=== PATIENT | female | born 1955 | race Caucasian/White ===

== ENCOUNTER → 2016-05-14 | Day surgery (SDC) | payer BC ==
[~2016-05-14] VITALS: Ht 154.9 cm; Wt 51.7 kg
[2016-05-14] VITALS (8 sets, daily range): BP systolic 116–125; BP diastolic 60–78
[~2016-05-14] MED LIST: FISH OIL300 M1 PO; LR 1000ml ONE; Lidocaine 1% MPF 10mg/ml 5ml ONE; MULTI VITAMIN1 EACH ORAL; Propofol 10mg/ml 20ml IV ONE; RED YEAST RICE600 MG PO
--- NOTE | 2016-05-14 10:01 | Pre-Procedure Note/Attestation ---
Pre-Procedure Note/Attestation Complete Prior to Procedure Planned Procedure: not applicable Procedure Narrative: colon Indications for Procedure Pre-Operative Diagnosis: screen Attestation I attest that I discussed the nature of the procedure; its benefits; risks and complications; and alternatives (and the risks and benefits of such alternatives ), prior to the procedure, with the patient (or the patient's legal factory representative). I attest that, if there was a reasonable possibility of needing a blood transfusion, the patient (or the patient's legal factory representative) was given the [facility] standardized written summary, pursuant to the Mehul Jaya Blood Safety Act ([place] Health and Safety Code # 1645, as amended). I attest that I re-evaluated the patient just prior to the surgery and that there has been no change in the patient's H&P, except as documented below: ERICA SIMENTAL May 14, 2016 10:01
--- NOTE | 2016-05-14 10:02 | Short Stay Surgery H&P ---
History of Present Illness History of Present Illness Chief Complaint see H&P attached HPI Holly Arellano is a 60 year old female who was admitted on for Colon Screening Patient History Allergies: Coded Allergies: No Known Allergies (Unverified , 05/14/16) PAST MEDICAL HISTORY: Past Surgeries: Social History: Medication History Scheduled Multivitamin (Multi Vitamin Daily), 1 TAB ORAL DAILY, (Reported) [place]-3 Fatty Acids (Fish Oil), 500 MG PO DA, (Reported) Red Yeast Rice (Red Yeast Rice), 600 MG PO DA, (Reported) Physical Exam Vital Signs Last Vital Signs Date Time Temp Pulse Resp B/P Pulse Ox O2 Delivery O2 Flow Rate FiO2 05/14/16 09:32 97.3 77 20 116/76 100 Room Air Plan Attestation Are the patient's medical conditions optimized for surgery? ERICA SIMENTAL May 14, 2016 10:02
--- NOTE | 2016-05-14 10:20 | Anethesia Preoperative Eval ---
Anesthesia Pre-op PMH/ROS General Date of Evaluation: May 14, 2016 Time of Evaluation: 10:18 Anesthesiologist: butch ASA Score: ASA 1 Mallampati Score Class I : Soft palate, uvula, fauces, pillars visible Class II: Soft palate, uvula, fauces visible Class III: Soft palate, base of uvula visible Class IV: Only hard plate visible Mallampati Classification: Class II Surgeon: ambrocio Diagnosis: screening Surgical Procedure: colonoscopy Anesthesia History: none Family History: no anesthesia problems Allergies: Coded Allergies: No Known Allergies (Unverified , 05/14/16) Medications: see eMAR Past Medical History Cardiovascular: Denies: CAD, HTN, [place], arrhythmia, other, valve dz Pulmonary: Denies: COPD, DOM, asthma, other Gastrointestinal/Genitourinary: Denies: CRI, ESRD, GERD, other Neurologic/Psychiatric: Denies: CVA, TIA, dementia, depression/anxiety, other Endocrine: Denies: DM, hypothyroidism, other, steroids HEENT: Denies: NOORVIK (L), NOORVIK (R), cataract (L), cataract (R), glaucoma, other Hematology/Immune: Denies: DVT, anemia, bleeding disorder, other Musculoskeletal/Integumentary: Denies: DDD, DJD, OA, RA, edema, other PSxH Narrative: none Anesthesia Pre-op Phys. Exam Physician Exam Last Vital Signs Date Time Temp Pulse Resp B/P Pulse Ox O2 Delivery O2 Flow Rate FiO2 05/14/16 09:32 97.3 77 20 116/76 100 Room Air Constitutional: NAD Neurologic: CN 2-12 intact Cardiovascular: RRR Respiratory: CTA Gastrointestinal: S/NT/ND Airway Exam Mallampati Classification 2 MO: full ROM: full Dentures: no lower, no upper Anesthesia Pre-op A/P Studies Pre-op Studies: EKG - SR Risk Assessment & Plan Plan: mac Status Change Before Surgery: No Pre-Antibiotics Drug: none FACUNDO MONTANO CRNA May 14, 2016 10:20
--- NOTE | 2016-05-14 10:42 | Immediate Post-Op Evaluation ---
Immediate Post-Op Evalulation Immediate Post-Op Evalulation Procedure: colonoscopy Date of Evaluation: May 14, 2016 Time of Evaluation: 10:41 IV Fluids: 500 Blood Pressure Systolic: 125 Blood Pressure Diastolic: 60 Pulse Rate: 74 O2 Sat by Pulse Oximetry: 99 Nausea: No Vomiting: No Complications none Patient Status: awake, reacts, patent Hydration Status: adequate Drug: none FACUNDO MONTANO CRNA May 14, 2016 10:42
--- NOTE | 2016-05-14 10:43 | Endoscopy Procedure Note ---
Endoscopy Procedure Note Indication for Procedure: screen Procedures Performed: colonoscopy Operative Findings/Diagnosis: ascening polyp --> saline and snare Specimen: yes Pt Tolerated Procedure Well: Yes Estimated Blood Loss: none Anesthesiologist: see report Anesthesia: MAC, moderate sedation Medication Given: fentanyl, see anesthesia record Implant(s) used?: No 50 yrs or older w/o bx or poly: No 10yrs. F/U not recommended: No If not recommended, why?: Above average risk 10 yrs. F/U needed: No 18 years or older w/prev. colo: No <3yrs. since last colonoscopy: No Med reason:<3 yrs.: System Reason:<3 yrs.: Last colonoscopy >= to 3yrs: No ERICA SIMENTAL May 14, 2016 10:43
--- NOTE | 2016-05-14 10:53 | Brief Operative Note ---
Immediate Post Operative Note Operative Note Chief Complaint: screen Pre-op Diagnosis: screen Procedure: colon inj SN Post-op Diagnosis: ascending pollyp Surgeon: chayito Anesthesiologist: see report Anesthesia: MAC Specimen: yes Complications: none Condition: stable Estimated Blood Loss: none Drains: none Implant(s) used?: No ERICA SIMENTAL May 14, 2016 10:53
--- NOTE | 2016-05-14 10:59 | 48 Hour Post Anesthesia Eval ---
Post Anesthesia Evaluation Procedure: colonoscopy Date of Evaluation: May 14, 2016 Time of Evaluation: 10:58 Blood Pressure Systolic: 117 0: 76 Pulse Rate: 70 Respiratory Rate: 14 O2 Sat by Pulse Oximetry: 99 Airway: patent Nausea: No Vomiting: No Hydration Status: adequate Mental Status/LOC: patient returned to baseline Post-Anesthesia Complications: none Follow-up care needed: N/A FACUNDO MONTANO CRNA May 14, 2016 10:59
--- NOTE | 2016-05-14 23:58 | Operative Note - Dictated ---
DATE OF OPERATION: 05/14/2016 GASTROLOGY PROCEDURE REPORT SURGEON: Usman Dockery M.D. PROCEDURE: Colonoscopy with injection and polypectomy. PRE-ENDOSCOPIC DIAGNOSIS: Screening colonoscopy. POST-ENDOSCOPIC DIAGNOSIS: A semi-pedunculated polyps seen in the proximal ascending colon status post removal as described above. DESCRIPTION OF PROCEDURE: The procedure, its risks, indications, alternatives, and possible complications including, but not limited to, bleeding, infection, perforation, , and anesthesia complications were explained to the patient and informed consent was obtained. The patient was then sedated in the left lateral decubitus position. A diagnostic colonoscope was introduced in the rectum and advanced to the cecum. The cecum was identified by the appearance of the ileocecal valve. The colonoscope was then gradually withdrawn and the mucosa examined carefully. Examination of colonic mucosa revealed 4 to 5 mm semi-pedunculated polyp in the proximal ascending colon, which was first raised with saline injection and then subsequently removed with the snare polypectomy without complications. The remainder of the examination including retroflexion of the rectum was unremarkable. The colonoscope was removed. The patient was sent to recovery in good condition. COMPLICATIONS: None. RECOMMENDATIONS: 1. Follow up biopsy results. 2. Outpatient follow up. 3. Repeat colonoscopy in three to five years. Usman Dockery M.D. DR: NAYELI JOB#: [id number] CC:
== END | disposition home or self-care (01) ==
LOC: GAS 08:33
DX: Z12.11 Encounter for screening for malignant neoplasm of colon (principal); D12.2 Benign neoplasm of ascending colon; E78.00 Pure hypercholesterolemia, unspecified
CPT/HCPCS: 45381; 45385; J2704; J7120; 94003; 94150